=== PATIENT | male | born 1955 | race Caucasian/White ===

== ENCOUNTER → 2021-01-31 10:35 | Outpatient (CLI) | payer MEDICARE, SELFPAY ==
[2021-01-31 12:32] LABS: Chloride 105 mmol/L (98-107); Sodium 143 mmol/L (136-145)
[2021-01-31 12:34] LABS: Alanine Aminotransferase 33 U/L (12-78); Aspartate Amino Transferase 32 U/L (17-59); Blood Urea Nitrogen 17 mg/dl (9-20); Estimated Glomerular Filt Rate 75 ml/min (>60); GFR (African American) 90 ML/MIN (>60)
[2021-01-31 12:35] LABS: Albumin/Globulin Ratio 1.3 (1.1-1.8); Alkaline Phosphatase 99 U/L (38-126); Bilirubin,Total 0.8 mg/dl (0.2-1.3); Calcium 9.3 mg/dl (8.4-10.2); Carbon Dioxide 29 mmol/L (22.0-30.0); Cholesterol 170 mg/dl (140-200); Globulin 3.1 g/dL (1.3-3.2); Glucose 113 mg/dl (74-100); HDL Cholesterol 42 mg/dl (40-60); Total Protein,Serum 7.1 g/dl (6.3-8.2); Triglycerides 300 mg/dl (30-150); VLDL Cholesterol 60 mg/dL (0-40)
[2021-01-31 12:46] LABS: Direct LDL Cholesterol 67.32 mg/dL (100-129)
== END ==
PROVIDERS: Visit Provider Internal Medicine Adolescent Medicine
DX: I10 Essential (primary) hypertension (principal); E78.01 Familial hypercholesterolemia
CPT/HCPCS: 36415; 80053; 80061

== ENCOUNTER 2021-08-23 00:03 | Emergency (ER) | payer MEDICARE, OTHER, SELFPAY ==
[2021-08-23] VITALS (7 sets, daily range): BP systolic 131–158; BP diastolic 73–91; PULSE 76–83; RESP 16; TEMP 36.6–36.8; O2SAT 95–99; BMI 36.0
--- NOTE | 2021-08-23 00:23 | CT_ITS ---
PROCEDURE INFORMATION: Exam: CT Abdomen And Pelvis Without Contrast Exam date and time: 08/23/2021 12:40 AM Age: 65 years old Clinical indication: Other: Blood in urine TECHNIQUE: Imaging protocol: Computed tomography of the abdomen and pelvis without contrast. Radiation optimization: All CT scans at this facility use at least one of these dose optimization techniques: automated exposure control; mA and/or kV adjustment per patient size (includes targeted exams where dose is matched to clinical indication); or iterative reconstruction. COMPARISON: No relevant prior studies available. FINDINGS: Lungs: The visualized lung bases are clear. Pleural spaces: There are no pleural effusions. Heart: There is mild atherosclerotic calcification of the coronary arteries. There is a small pericardial fluid collection present. Diaphragm: A small hiatal hernia is present. Liver: There is diffuse decrease in hepatic parenchymal density consistent with fatty infiltration. Gallbladder and bile ducts: Multiple calcified gallstones are present. Pancreas: The pancreas is normal. Spleen: The spleen demonstrates punctate calcifications, consistent with remote granulomatous organism exposure. An accessory splenule is present. Adrenal glands: Normal. No mass. Kidneys and ureters: There is mild inflammatory perinephric stranding. There is a 4.5 cm simple cyst in the left kidney. No hydronephrosis. No ureteric stone disease. Stomach and bowel: The stomach is normal. The duodenum is unremarkable. Moderate diverticulosis is present throughout the colon, most prominent involving the mid sigmoid. No convincing evidence of diverticulitis. Unopacified loops of small bowel are within range of normal. Appendix: A normal appendix is identified. Intraperitoneal space: No free air. No significant fluid collection. Vasculature: There are a few benign phleboliths in the pelvis. The aorta and iliac arteries demonstrate mild atherosclerotic calcification. Lymph nodes: No enlarged lymph nodes. There are a few scattered lymph nodes in the central mesentery, not of pathologic significance by CT size criteria. There is mild hazy stranding of the central mesentery, so-called Delia mesentery. Urinary bladder: The bladder is decompressed. There is mild to moderate bladder wall thickening. There is mild perivesicular hazy fat stranding which may reflect edema/inflammation/cellulitis. Cannot exclude neoplasm in the appropriate clinical setting. Correlate clinically. Reproductive: The prostate demonstrates mild nonspecific enlargement measuring 4.7 x 5.4 cm. The seminal vesicles are normal. Bones/joints: There are mild degenerative changes of the hip joints. The thoracolumbar spine demonstrates mild degenerative changes at multiple levels. There is very slight retrolisthesis of L5 on S1. Soft tissues: There is a nonobstructing left inguinal hernia. There is a tiny fat-containing umbilical hernia. No significant soft tissue edema. Other findings: Left hilar calcifications indicate prior granulomatous disease. IMPRESSION: 1. Mild perivesicular hazy fat stranding suggesting edema/inflammation/cystitis. Cannot exclude neoplasm in the appropriate clinical setting. Moderate bladder wall thickening suggesting incomplete distention, chronic outflow obstruction or cystitis. Correlate clinically. 2. A few scattered lymph nodes in the central mesentery, not of pathologic significance by CT size criteria, with mild mild hazy stranding of the central mesentery, so-called delia mesentery.These findings are nonspecific, and most likely represent a viral adenitis. This delia mesentery can be an
[2021-08-23 00:51] LABS: Basophils # 0.2 K/mm3 (0-0.2); Basophils % 1.2 % (0.1-2.0); Eosinophils # 0.4 K/mm3 (0.0-0.4); Eosinophils % 2.6 % (0.1-12.0); Hematocrit 49.4 % (42.0-52.0); Hemoglobin 16.1 g/dL (14.1-18.0); Lymphocytes # 1.9 K/mm3 (0.7-4.5); Lymphocytes % 12.2 % (10-50); Mean Corpuscular HGB Conc 32.6 g/dL (31.8-35.4); Mean Corpuscular Hemoglobin 31.5 pg (27.0-31.2); Mean Corpuscular Volume 96.6 fl (80-94); Mean Platelet Volume 8.2 fl (7.4-10.4); Monocytes # 0.9 K/mm3 (0.1-1.0); Monocytes % 5.9 % (1.7-9.3); Neutrophils # 12.1 K/mm3 (1.8-7.8); Neutrophils % 78.2 % (37.0-80.0); Platelet Count 309 K/mm3 (142-424); Red Blood Count 5.12 M/mm3 (4.60-6.20); Red Cell Distribution Width 14.5 % (11.5-17.5); White Blood Count 15.5 K/mm3 (4.8-10.8)
[2021-08-23 00:56] LABS: MANUAL DIFFERENTIAL MANUAL DIFFERENTIAL (MANUAL DIFF)
[2021-08-23 01:01] LABS: Alanine Aminotransferase 44 U/L (12-78); Albumin Level 4.7 g/dl (3.5-5.0); Albumin/Globulin Ratio 1.3 (1.1-1.8); Alkaline Phosphatase 133 U/L (38-126); Anion Gap 12.2 mEq/L (5-15); Aspartate Amino Transferase 43 U/L (17-59); Bilirubin,Total 2.5 mg/dl (0.2-1.3); Blood Urea Nitrogen 17 mg/dl (9-20); Carbon Dioxide 29 mmol/L (22.0-30.0); Chloride 99 mmol/L (98-107); Creatinine Clearance Estimated 97 mL/min (50-200); Estimated Glomerular Filt Rate 84 ml/min (>60); GFR (African American) 102 ML/MIN (>60); Globulin 3.6 g/dL (1.3-3.2); Glucose 93 mg/dl (74-100); Potassium 4.2 mmoL/L (3.5-5.1); Sodium 136 mmol/L (136-145); Total Protein,Serum 8.3 g/dl (6.3-8.2)
[2021-08-23 01:06] LABS: C-Reactive Protein 28.4 mg/L (0-4)
[2021-08-23 01:07] LABS: INR 1.07 (0.9-1.1)
[2021-08-23 01:18] LABS: Procalcitonin 0.074 ng/mL (0.0-2.0)
--- NOTE | 2021-08-23 01:28 | HMH.EDUROGM ---
ED Disposition Clinical Impression: Urinary tract infection Qualifiers: Urinary tract infection type: acute cystitis Hematuria presence: with hematuria Qualified Code(s): N30.01 - Acute cystitis with hematuria Disposition: Home, Self-Care Condition on Discharge: Good Instructions: DI for Urinary Tract Infection (UTI) Additional Instructions: use meds and call pcp for urine culture results Prescriptions: levoFLOXacin [Levaquin 500mg tab] 750 mg PO DAILY #3 tab Transmission Status: Pending to [facility] Referrals: James Stewart MD [Primary Care Provider] - - Critical Care Critical Care Time: No Attestation: On 08/23/21, the high probability of a clinically significant, sudden or life threatening deterioration of the following system(s) required my full and direct attention, intervention and personal management. The time I documented below is in addition to time spent performing reported procedures but includes the following listed in this critical care notation. Medical Decision Making - Medical Records Medical records reviewed: Yes: I reviewed the patient's medical records. - [place] Inquiry Pt receiving controlled substance: No Vital Signs: 08/23/21 00:18 Temperature 97.8 F Temperature Source Oral Pulse Rate [Left Radial] 83 Respiratory Rate 16 Blood Pressure [Right Arm] 158/91 H Blood Pressure Mean [Right Arm] 113 02 Sat by Pulse Oximetry 98 Oxygen Delivery Method Room Air - Lab Data Lab results reviewed: Yes: I reviewed the patient's lab results. Lab Results 08/23/21 00:40: WBC 15.5 H, RBC 5.12, Hgb 16.1, Hct 49.4, MCV 96.6 H, MCH 31.5 H, MCHC 32.6, RDW 14.5, Plt Count 309, MPV 8.2, Neut % (Auto) 78.2, Lymph % (Auto) 12.2, [place] % (Auto) 5.9, Eos % (Auto) 2.6, Baso % (Auto) 1.2, Neut # (Auto) 12.1 H, Lymph # (Auto) 1.9, [place] # (Auto) 0.9, Eos # (Auto) 0.4, Baso # (Auto) 0.2 08/23/21 00:40: Sodium 136, Potassium 4.2, Chloride 99, Carbon Dioxide 29, Anion Gap 12.2, BUN 17, Creatinine 0.90, Estimated Creat Clear 97, Estimated GFR 84, Est GFR ( Amer) 102, Glucose 93, Calcium 9.0, Total Bilirubin 2.5 H, AST 43, ALT 44, Alkaline Phosphatase 133 H, C-Reactive Protein 28.4 H, Total Protein 8.3 H, Albumin 4.7, Globulin 3.6 H, Albumin/Globulin Ratio 1.3, Procalcitonin 0.074 08/23/21 00:40: PT 12.0, INR 1.07 08/23/21 01:02: Urine Color Brown, Urine Appearance Clear, Urine pH 6.5, Ur Specific [place] >= 1.030, Urine Protein 2+, Urine Glucose (UA) Negative, Urine Ketones 1+, Urine Blood 3+, Urine Nitrate Positive, Urine Bilirubin 1+ A, Urine Urobilinogen 2.0, Ur Leukocyte Esterase 1+ A Result diagrams: 08/23/21 00:40 08/23/21 00:40 Orders (Tests/Meds): ED MEDICATIONS Generic Name Dose Route Start Last Admin Trade Name Wilianq PRN Reason Stop Dose Admin Sodium Chloride 1,000 mls @ 999 mls/hr 08/23/21 00:30 08/23/21 00:29 Sod Chlor 0.9% 1000ml Bag IV 08/23/21 01:30 999 mls/hr .Q1H1M DANIEL Administration Ceftriaxone Sodium 1 gm/ 50 mls @ 100 mls/hr 08/23/21 01:45 08/23/21 01:48 Sodium Chloride IV 09/06/21 01:44 100 mls/hr Q24H DANIEL Administration ORDERS Category Date Time Status Complete Blood Count Auto Diff Stat Lab 08/23/21 00:40 Results Erythrocyte Sedimentation Rate Stat Lab 08/23/21 00:40 Results UA [Urinalysis and Microscopic] Stat Lab 08/23/21 01:02 Results Urine Culture Stat Micro 08/23/21 00:53 Received - CT Data CT Scan: Abdomen, Pelvis Time Received: 02:[address] Reviewed: Yes: I have viewed the radiologist's interpretation Preliminary Findings: Normal/NAD (see report ) Medical Decision Narrative: stsble exam and has uti on xarelto for dvt Male Urogenital HPI - General Chief complaint: Urogenital-Male Stated complaint: Peeing blood with frequency and some pain,chills,n Time Seen by Provider: 08/23/21 01:28 Mode of Arrival: Ambulatory Source of Information: Patient, Medical Record Limitations: No Limitations Description of Sympt
[2021-08-23 01:39] LABS: Microscopic, Urine URINE MICROSCOPIC (MICROSCOPIC)
[2021-08-23 01:40] LABS: Appearance,Urine CLEAR (Clear); Blood, Urine 3+ (Negative); Color,Urine BROWN (Yellow); Glucose,Urine (UA) Negative (Negative); Ketones,Urine 1+ (Negative); Leukocyte Esterase,Urine 1+ (Negative); Nitrate,Urine POSITIVE (Negative); PH,Urine 6.5 (5.0-8.5); Protein,Urine 2+ (Negative); Specific Gravity, Urine >= 1.030 (1.005-1.030)
[2021-08-23 02:00] LABS: Bilirubin,Urine 1+ (Negative)
[2021-08-23 02:11] LABS: Bacteria,Urine 1+ /lpf; RBC,Urine TNTC #/hpf (0-3); WBC,Urine TNTC #/hpf (0-3)
--- NOTE | 2021-08-23 02:12 | PC.NURSE ---
Spoke with Chaya for Levo dosing. She suggests 750mg PO daily for 3 days.
[2021-08-23 03:22] LABS: Eosinophils % 2 % (0-3); Lymphocytes % 15 % (10-50); Monocytes % 4 % (2-9); Neutrophils % 77 % (42-76); Platelet Estimate Normal; Total Cells Counted 100
[2021-08-23 03:35] LABS: Erythrocyte Sedimentation Rate 9 mm/hr (0-20)
== END 2021-08-23 02:35 | disposition home or self-care (01) ==
PROVIDERS: Emergency Provider Emergency Medicine; PCP Internal Medicine Adolescent Medicine
DX: N30.01 Acute cystitis with hematuria (principal)
CPT/HCPCS: 74176; 80053; 81001; 84145; 85007; 85025; 85610; 85651; 86140; 87086; 87088; 87186; 96361; 96365; 96366; 96374; 99285; J0696

== ENCOUNTER 2022-05-17 15:36 | Emergency (ER) | payer MEDICARE, OTHER, SELFPAY ==
--- NOTE | 2022-05-17 15:58 | PC.NURSE ---
pt assessed in triage room, 143/85,HR 71, RR 19 and oxygen 96 RA. PT verbalized understanding about bed availability in the ER at this time Pt placed back into the lobby until room is open. Bleeding on finger has stopped, pt is wrapped with secure dressing by ER staff.
[2022-05-17 16:03] VITALS: BMI 39.1
--- NOTE | 2022-05-17 16:04 | XR_ITS ---
PROCEDURE INFORMATION: Exam: XR Left Hand Exam date and time: 05/17/2022 4:12 PM Age: 66 years old Clinical indication: Injury or trauma; Other: Chainsaw injury; Other: Laceration; Additional info: Laceration to index finger TECHNIQUE: Imaging protocol: Radiologic exam of the Left hand. Views: 1 or 2 views. COMPARISON: No relevant prior studies available. FINDINGS: Bones/joints: Laceration fracture through the midshaft of the distal phalanx of the index finger is in near anatomic alignment and has no definite involvement of the DIP joint. Radiopaque bandage material envelopment the index finger. No other fractures, bone lesions, or dislocations. Joint spaces are well preserved without erosions. Soft tissues: Soft tissue laceration is present across the tip of the index finger. IMPRESSION: Acute, open, fracture/laceration of the distal phalanx of the left index finger with surrounding soft tissue laceration of the distal finger.
--- NOTE | 2022-05-17 16:55 | HMH.EDGENADL ---
Discharge Plan Disposition Patient Disposition: Xfer Short-Term Hosp Condition: Fair Chief Complaint: Wound/Laceration Prescriptions Prescriptions: No Action levofloxacin 500 mg tablet 500 mg PO DAILY Qty: 3 0RF trazodone 50 MG tablet 50 mg PO BID atorvastatin 10 MG tablet 10 mg PO HS metoprolol succinate 50 MG tablet extended release 24 hr 50 mg PO DAILY amlodipine 10 MG tablet 1 tab PO DAILY escitalopram oxalate 20 MG tablet 1 tab PO DAILY rivaroxaban 20 MG tablet 20 mg PO DAILY Referrals Follow up/Referrals: Sebastian Costello MD [Primary Care Provider] - See instructions Clinical Impressions Clinical Impression: Open fracture of distal phalanx of left index finger, Nailbed injury, Laceration of left index finger Discharge ED Provider: Kory Infante General Adult HPI General Chief complaint: Wound/Laceration Stated complaint: AO 04/30@lac to left makalya finger Time Seen by Provider: 05/17/22 18:26 History of Present Illness HPI narrative: The patient cut his left index finger with a table saw. He thinks he had a tetanus immunization within the past 5 years but cannot be certain. He is nondiabetic. Complains of throbbing pain. Related Data Home Medications Medication Instructions Recorded Confirmed amlodipine 10 mg tablet 1 tab PO DAILY Hypertension 08/23/21 08/23/21 atorvastatin 10 mg tablet 10 mg PO HS Cholesterol 08/23/21 08/23/21 escitalopram oxalate 20 mg tablet 1 tab PO DAILY ANXIETY AND 08/23/21 08/23/21 DEPRESSION metoprolol succinate 50 mg 50 mg PO DAILY Hypertension 08/23/21 08/23/21 tablet,extended release 24 hr rivaroxaban 20 mg tablet 20 mg PO DAILY Blood thinner 08/23/21 08/23/21 trazodone 50 mg tablet 50 mg PO BID ANXIETY AND DEPRESSION 08/23/21 08/23/21 Previous Rx's Medication Instructions Recorded levofloxacin 500 mg tablet 500 mg PO DAILY #3 tabs 08/23/21 Allergies Allergy/AdvReac Type Severity Reaction Status Date / Time No Known Allergies Allergy Verified 08/23/21 00:23 [facility] Disclaimer: The information contained in this section may have been updated after the patient was seen, as this information can be updated by other users. Social History Smoking Status: Never smoker ROS Obtained: Yes Systems reviewed as appropriate & no additional complaints except as documented Constitutional Constitutional: Denies weakness Musculoskeletal Musculoskeletal: Reports as per HPI and Denies numbness Integumentary/Breasts Skin/Breast: Reports wounds Neurologic Neurologic: Denies numbness and Denies weakness Physical Exam General General appearance: alert and in no apparent distress Head Head exam: atraumatic and normocephalic Eye Eye exam: Present normal appearance and EOMI ENT ENT exam: Present mucous membranes moist Neck Neck exam: Present normal inspection and trachea midline Chest Chest inspection: Present normal inspection and symmetric chest wall rise Respiratory Respiratory exam: Absent respiratory distress Cardiovascular Cardiovascular exam: Present regular rate Expanded Upper Extremity Exam Left: Comment: Longitudinal laceration going through the tip of the finger, along the ulnar side of the nail plate, through the germinal matrix and the proximal attachment of the nail plate and then extending almost to the PIP joint. Bone is visible within the wound. No visible contamination or foreign bodies. Good capillary refill of the tip of the digit. Neurological Exam Neurological exam: Present alert and oriented X3 Psychiatric Psychiatric exam: Present normal affect and normal mood Skin Skin exam: Present warm and dry Medical Decision Making [place] Inquiry Pt receiving controlled substance: No Vital Signs: 05/17/22 17:38 Temperature 97.8 F Temperature Source Oral Pulse Rate [Left Radial] 88 Respiratory Rate 18 Blood Pressure [Right Arm] 147/79 H Blood Pressure Mean [Right Ar
[2022-05-17 17:38] VITALS: BP 147/79; PULSE 88; RESP 18; TEMP 36.6; O2SAT 100; BMI 35.4
--- NOTE | 2022-05-17 18:46 | PC.NURSE ---
called [facility] for hand surgery awaiting caskarli with Dr tanisha Nova on for Hand.
--- NOTE | 2022-05-17 18:48 | PC.NURSE ---
Dr Infante speaking with Dr Hsu at [facility]
--- NOTE | 2022-05-17 18:59 | PC.NURSE ---
WET TO DRY DRESSING APPLIED TO FINGER
[2022-05-17 19:42] VITALS: BP 142/85; PULSE 88; RESP 18; TEMP 36.6; O2SAT 100
== END 2022-05-17 19:44 | disposition short-term general hospital (02) ==
PROVIDERS: Emergency Provider Emergency Medicine; PCP Internal Medicine Adolescent Medicine
DX: S62.631B Displaced fracture of distal phalanx of left index finger, initial encounter for open fracture (principal); W31.2XXA Contact with powered woodworking and forming machines, initial encounter; Z23 Encounter for immunization
CPT/HCPCS: 73120; 90471; 90714; 96372; 99284

== ENCOUNTER 2024-06-16 08:09 | Day surgery (SDC) | payer MEDICARE, OTHER, SELFPAY ==
[2024-06-12 10:26] VITALS: BMI 34.3
[2024-06-16] VITALS (7 sets, daily range): BP systolic 131–142; BP diastolic 77–94; PULSE 51–70; RESP 18–20; TEMP 36.1–36.3; O2SAT 96–100
[2024-06-16] MEDS: CYCLOPENTOLATE 2% OPHTH SOLN 2ML BOTTLE OP ×3 (09:30→09:40)
[2024-06-16] MEDS: TETRACAINE 0.5% OPTH SOL 15ML OP ×3 (09:30→09:40)
[2024-06-16] MEDS: PHENYLEPHRINE 2.5% OPHTH SOLN 2ML OP ×3 (09:30→09:40)
[2024-06-16] MEDS: LIDOCAINE 1% PF 2ML AMPULE 2 ML IJ (10:41)
[2024-06-16] MEDS: MIDAZOLAM 2MG/2ML VIAL 1 MG IV (10:41)
[2024-06-16] MEDS: TRI-MOXI 15MG/1MG/ML 1ML OPHTH VIAL 1 ML OP (10:41)
[2024-06-16] MEDS: TIMOLOL 0.5% OPTH SOLN 5ML OP (10:41)
--- NOTE | 2024-06-16 11:51 | P.PCN_ITS ---
[facility] Procedure Note Date: 06/16/24 Time: 11:51 Procedure Note:: Preoperative Diagnosis: Cataract combined NS Cortical Complex [Right] Eye Postop diagnosis: same Operation: Microscopic phacoemulsification with intraocular lens implant [Right] Eye Specimen: None Blood Loss: None The patient was examined in the office with a complaint of poor vision in the [right] eye. The patient reports that this interferes with ADLs such as reading, watching TV and/or driving or the vision is like looking through a foggy haze and is very troubling. The patient was examined and found to have a visually significant cataract with best corrected vision of [20/400] by refraction and/or glare testing. Treatment options, risks and benefits were explained and the patient elected to have cataract surgery in an attempt to improve their vision. The patient had the eye anesthetized with topical tetracaine, the eye ways prepped and draped in the usual fashion for cataract surgery. A paracentesis and a temporal keratotomy were made. 0.2cc of 1% lidocaine PF was placed into the anterior chamber. And aqueous/viscoelastic exchange was done and a 360 degree capsulorexis was performed. Through hydrodissection and delineation with BSS on a cannula was done. The lens nucleus was phecoemulsified with CDE of [6.85]. Residual cortical material was removed using automated I&A The capsular bag was deepened with viscoelastica and a PCIOL was placed in the capsular bag with good centration and stability. Residual viscoelastic was removed using automated I&A. The keratotomy incision was hydrated with BSS on a cannula. The wound were checked and found to be water tight. IOP was checked digitally and adjusted as needed so as not to be too high. 1 drop of timolol 0.5%, ofloxacin, prednisolone acetate and ketorolac was instilled and eye shield taped over the eye. The patient was taken to recovery in good condition and will be seen postoperatively.
== END 2024-06-16 11:29 | disposition home or self-care (01) ==
PROVIDERS: PCP Internal Medicine Adolescent Medicine; Visit Provider Ophthalmology
PROC: (CPT 66984; principal; 2024-06-16 12:45)
DX: H25.011 Cortical age-related cataract, right eye (principal)
CPT/HCPCS: 66984; J2250; V2632

== ENCOUNTER 2024-09-14 15:19 | Emergency (ER) | payer MEDICARE, OTHER, SELFPAY ==
[2024-09-14 15:23] VITALS: BP 159/75; PULSE 59; RESP 18; TEMP 36.6; O2SAT 99; BMI 39.4
--- NOTE | 2024-09-14 15:29 | HMH.EDGENADL ---
Discharge Plan Disposition Patient Disposition: Home, Self-Care Condition: Good Prescriptions Prescriptions: New cephalexin 500 mg capsule 500 mg PO BID 7 Days Qty: 14 0RF No Action atorvastatin 10 MG tablet 10 mg PO HS metoprolol succinate 50 MG tablet extended release 24 hr 50 mg PO DAILY amlodipine 10 MG tablet 1 tab PO DAILY escitalopram oxalate 20 MG tablet 1 tab PO DAILY rivaroxaban 20 MG tablet 20 mg PO DAILY aspirin 81 mg Capsule 81 mg PO DAILY Referrals Follow up/Referrals: Sebastian Costello MD [Primary Care Provider] - See instructions Activity Restrictions/Add. Instructions Additional Instructions/Restrictions: You may leave your laceration open to air, however if you cover it please cover with a dry nonocclusive dressing. No ointments or creams until the stitches come out. Your stitches need to stay in for approximately 2 weeks. If you have any increasing redness drainage swelling or pain return to the emerged part for evaluation. I have sent a prescription into your pharmacy for antibiotics. Please take them till they are all gone. Clinical Impressions Clinical Impression: Laceration of left thumb Qualifiers: Encounter type: initial encounter Damage to nail status: without damage Foreign body presence: without foreign body Qualified Code(s): S61.012A - Laceration without foreign body of left thumb without damage to nail, initial encounter Instructions Patient Instructions: DI for Laceration Repair Print Language Print Language: Ukrainian Discharge ED Provider: Liam Posadas General Adult HPI <DUANE Herrera - Last Filed: 09/14/24 20:42> General Chief complaint: Wound/Laceration Stated complaint: AO 09/14/24 1420 laceration left thumb Time Seen by Provider: 09/14/24 15:29 Mode of Arrival: Ambulatory Source of Information: Patient Description of Symptoms (Recalled from ER Triage Doc. by RN): Pt presents for evaluation of a laceration to his left hand. Pt cut his left thrumb on a broken piece of window glass. Pt is on xarelto, and states he got a t-dap 1-2 yrs ago History of Present Illness HPI narrative: Patient presents for evaluation of a left thumb injury. Patient was unloading broken glass from his truck and a piece cut the dorsum of his left thumb. Patient is on a blood thinner. He went home to his shop and cleaned it with alcohol but could not get it stopped bleeding so he came to the ER. He denies loss of motor or sensory. Related Data Home Medications ?Medication ?Instructions ?Recorded ?Confirmed amlodipine 10 mg tablet 1 tab PO DAILY Hypertension 08/23/21 06/12/24 atorvastatin 10 mg tablet 10 mg PO HS Cholesterol 08/23/21 06/12/24 escitalopram oxalate 20 mg tablet 1 tab PO DAILY ANXIETY AND 08/23/21 06/12/24 DEPRESSION metoprolol succinate 50 mg 50 mg PO DAILY Hypertension 08/23/21 06/12/24 tablet,extended release 24 hr rivaroxaban 20 mg tablet 20 mg PO DAILY Blood thinner 08/23/21 06/16/24 aspirin 81 mg capsule 81 mg PO DAILY 06/12/24 06/12/24 Previous Rx's ?Medication ?Instructions ?Recorded cephalexin 500 mg capsule 500 mg PO BID 7 days #14 caps 09/14/24 Allergies Allergy/AdvReac Type Severity Reaction Status Date / Time adhesive tape Allergy Rash Verified 06/12/24 10:24 [facility] <DUANE Herrera - Last Filed: 09/14/24 20:42> [facility] Disclaimer: The information contained in this section may have been updated after the patient was seen, as this information can be updated by other users. Medical History (Updated 09/14/24 @ 16:24 by DUANE Herrera) Colonoscopy planned Retraction of blood clot Arthritis Acid reflux Hx of deep venous thrombosis Hypercholesterolemia Hypertension Surgical History H/O oral surgery Hx of knee surgery Family History Sister Cancer Mother Cancer Father Cancer Social History Smoking Status: Never smoker alcohol intake: current current occupational status: employed Travel in the last 8 weeks?: None caffeine: Yes Have you lived/traveled outside [place] in past 30 days?: No Contact w/someone who lives/traveled outside [place] past 30 days?: No Exposure to someone with infectious disease in past 14 days?: No Do you have a fever (greater than 100.4 F or 38 C)?: No Have you tested positive for COVID-19?: No Exposed to someone with COVID-19 in past 14 days?: No Do you have a sore throat?: No Do you have a cough?: No Do you have any weakness?: No Do you have any diarrhea?: No Are you experiencing any unusual bleeding?: No Do you have any muscle aches/pain?: No Do you have any abdominal pain?: No Are you experiencing loss of taste or smell?: No Other Medical History Have you received the Flu Vaccine for this season: No Have you received the Pneumonia Vaccine: No <DUANE Herrera - Last Filed: 09/14/24 20:42> ROS Obtained: Yes Systems reviewed as appropriate & no additional complaints except as documented Physical Exam <DUANE Herrera - Last Filed: 09/14/24 20:42> General General appearance: alert and in no apparent distress Respiratory Respiratory exam: Present normal lung sounds bilaterally Cardiovascular Cardiovascular exam: Present regular rate Neurological Exam Neurological exam: Present alert and oriented X3 Medical Decision Making <DUANE Herrera - Last Filed: 09/14/24 20:42> Medical Records Medical records reviewed: Yes I reviewed the patient's medical records. Screening: Per USPSTF and CDC recommendations, given the prevalence of disease in our region, it is our hospital?s policy to screen for HIV and viral Hepatitis for all patients aged 18 and over and those with ongoing risk factors. [place] Inquiry Pt receiving controlled substance: No Vital Signs: 09/14/24 15:23 09/14/24 16:26 Temperature 97.8 F 98.7 F Temperature Source Oral Pulse Rate 60 Pulse Rate [Right] 59 L Respiratory Rate 18 20 Blood Pressure 148/70 H Blood Pressure [Right Arm] 159/75 H Blood Pressure Mean [Right Arm] 103 Blood Pressure Source Automatic Cuff Blood Pressure Source [Right Arm] Automatic Cuff Blood Pressure Position [Right Arm] Sitting 02 Sat by Pulse Oximetry 99 Oxygen Delivery Method Room Air Orders (Tests/Meds): ED MEDICATIONS Discontinued Medications Generic Name Dose Route Start Last Admin Trade Name Freq PRN Reason Stop Dose Admin Lidocaine/Epinephrine 10 ml 09/14/24 15:45 09/14/24 15:59 Lidocaine 1% W/Epi 1:100,000 20ml Vial SQ 09/14/24 15:46 10 ml ONCE ONE Administration Medical Decision Narrative: In summary patient is a 68-year-old male who presents to the emergency department for evaluation of left thumb laceration. Patient is hemodynamically stable the blood pressure 159/75 heart rate 59 normal sinus rhythm on the bedside monitor breathing 18 times minute satting 99% on room air upon arrival, afebrile at 98.7. Physical exam is remarkable for approximate 3 cm in length flap laceration of the left thumb. The laceration cuts parallel to the length of the thumb. It is bleeding briskly after taking down the self applied bandage.. Differential diagnosis includes simple laceration versus arterial injury versus complex laceration involving joint or tendon. Initial workup considered with labs and imaging however deferred and lieu of hemostatic control and exam under local anesthesia. Initial interventions include tourniquet applied with vessel loop and hemostats and direct pressure along with elevation above the level of the heart. After hemostatic control was obtained, initial workup performed by me and patient is neurovascularly intact distally and has full range of motion prior to anesthesia. Given that patient was digitally blocked with lidocaine with epi. After adequate anesthesia obtained wound was irrigated copiously and examined. He has a scalping type laceration and does not penetrate the joint or deep enough to the tendons. Given this wound was repaired primarily with 6 4 point 0 nylon sutures in interrupted fashion. Hemostasis was obtained after takedown of the tourniquet. Given this patient is appropriate for discharge as he has a current Tdap from 2021 and a prescription for Keflex with first dose given here. Wound instructions were given to him by myself including keeping the wound clean dry and covered if necessary and strict return precautions for increased redness swelling drainage or pain. Sutures need to stay in for 2 weeks. <Liam Posadas MD - Last Filed: 09/14/24 21:19> Vital Signs: 09/14/24 15:23 09/14/24 16:26 Temperature 97.8 F 98.7 F Temperature Source Oral Pulse Rate 60 Pulse Rate [Right] 59 L Respiratory Rate 18 20 Blood Pressure 148/70 H Blood Pressure [Right Arm] 159/75 H Blood Pressure Mean [Right Arm] 103 Blood Pressure Source Automatic Cuff Blood Pressure Source [Right Arm] Automatic Cuff Blood Pressure Position [Right Arm] Sitting 02 Sat by Pulse Oximetry 99 Oxygen Delivery Method Room Air Orders (Tests/Meds): ED MEDICATIONS Discontinued Medications Generic Name Dose Route Start Last Admin Trade Name Freq PRN Reason Stop Dose Admin Lidocaine/Epinephrine 10 ml 09/14/24 15:45 09/14/24 15:59 Lidocaine 1% W/Epi 1:100,000 20ml Vial SQ 09/14/24 15:46 10 ml ONCE ONE Administration Medical Decision Narrative: In summary patient is a 68-year-old male who presents to the emergency department for evaluation of left thumb laceration. Patient is hemodynamically stable the blood pressure 159/75 heart rate 59 normal sinus rhythm on the bedside monitor breathing 18 times minute satting 99% on room air upon arrival, afebrile at 98.7. Physical exam is remarkable for approximate 3 cm in length flap laceration of the left thumb. The laceration cuts parallel to the length of the thumb. It is bleeding briskly after taking down the self applied bandage.. Differential diagnosis includes simple laceration versus arterial injury versus complex laceration involving joint or tendon. Initial workup considered with labs and imaging however deferred and lieu of hemostatic control and exam under local anesthesia. Initial interventions include tourniquet applied with vessel loop and hemostats and direct pressure along with elevation above the level of the heart. After hemostatic control was obtained, initial workup performed by me and patient is neurovascularly intact distally and has full range of motion prior to anesthesia. Given that patient was digitally blocked with lidocaine with epi. After adequate anesthesia obtained wound was irrigated copiously and examined. He has a scalping type laceration and does not penetrate the joint or deep enough to the tendons. Given this wound was repaired primarily with 6 4 point 0 nylon sutures in interrupted fashion. Hemostasis was obtained after takedown of the tourniquet. Given this patient is appropriate for discharge as he has a current Tdap from 2021 and a prescription for Keflex with first dose given here. Wound instructions were given to him by myself including keeping the wound clean dry and covered if necessary and strict return precautions for increased redness swelling drainage or pain. Sutures need to stay in for 2 weeks. GLENNA attestation I was consulted by the GLENNA, and we discussed the complexity of problems being addressed. I approved the treatment and management plan for this patient's care in the emergency department, thus performing a substantial portion of the medical decision making. I evaluated the patient at bedside and was also present for his procedure. Liam Posadas MD Procedures <DUANE Herrera - Last Filed: 09/14/24 20:42> Laceration Laceration 1: Site: thumb Side (If applicable): left Size (cm): 3 Description: flap Depth: simple, single layer Local Anesthetic: lidocaine 1% (Digital block) and with epi Amount of anesthesia used (mL): 5 Pre-repair: wound explored, irrigated extensively and deep structures intact Skin layer closed with: nylon Size (cm): 4-0 Number of sutures: 6 Technique: simple, interrupted Critical Care <DUANE Herrera - Last Filed: 09/14/24 20:42> Critical Care Time Critical Care Time: Yes Attestation: On 09/14/24, the high probability of a clinically significant, sudden or life threatening deterioration of the following system(s) required my full and direct attention, intervention and personal management. The time I documented below is in addition to time spent performing reported procedures but includes the following listed in this critical care notation. Total Time Total Critical Care Time: 35
[2024-09-14] MEDS: LIDOCAINE 1% W/EPI 1:100,000 20ML VIAL 10 ML SQ (15:59)
[2024-09-14 16:26] VITALS: BP 148/70; PULSE 60; RESP 20; TEMP 37.1; O2SAT 99
== END 2024-09-14 16:29 | disposition home or self-care (01) ==
PROVIDERS: Emergency Provider Student in an Organized Health Care Education/Training Program; PCP Internal Medicine Adolescent Medicine
DX: S61.012A Laceration without foreign body of left thumb without damage to nail, initial encounter (principal); W25.XXXA Contact with sharp glass, initial encounter
CPT/HCPCS: 12002; 99283

== ENCOUNTER 2024-10-03 10:21 | Emergency (ER) | payer MEDICARE, OTHER, SELFPAY ==
[2024-10-03 10:28] VITALS: BP 135/78; PULSE 80; RESP 20; TEMP 36.8; O2SAT 98; BMI 37.4
[2024-10-03 10:31] VITALS: BP 137/80; PULSE 80; RESP 20; TEMP 36.8; O2SAT 98
== END 2024-10-03 10:32 | disposition home or self-care (01) ==
LOC: ER 10:28
PROVIDERS: Emergency Provider Emergency Medicine; PCP Internal Medicine Adolescent Medicine
DX: Z48.02 Encounter for removal of sutures (principal)
CPT/HCPCS: 99281